=== PATIENT | female | born 1980 | race Caucasian/White ===

== ENCOUNTER 2020-11-23 15:51 | Emergency (ER) | payer SELFPAY | END 2020-11-23 18:56 | disposition home or self-care (01) | LOC: ERS 15:51 | DX: S80.212A Abrasion, left knee, initial encounter (principal); W18.30XA Fall on same level, unspecified, initial encounter ==

== ENCOUNTER 2021-03-18 17:03 | Emergency (ER) | payer SELFPAY ==
[~2021-03-18 17:03] MED LIST: Iopamidol-370 76% 500 ML 1 ML ONE
[2021-03-18 18:28] LABS: #Basophils 0.1 thou/uL (0.0-0.2); #Eosinphils 0.3 thou/uL (0.0-0.7); #Lymphocytes 2.2 thou/uL (1.20-3.40); #Monocytes 0.6 thou/uL (0.11-0.59); #Neutrophils 5.7 thou/uL (1.40-6.50); %Basophils 0.7 % (0.0-1.0); %Eosinophils 3.2 % (0.0-10.0); %Lymphocytes 25.1 % (21.0-51.0); %Monocytes 6.7 % (0.0-10.0); %Neutrophils 64.3 % (42.0-75.0); Hemoglobin 13.9 g/dL (12.0-16.0); Mean Corpuscular HGB CONC 33.3 g/dL (32.0-36.0); Mean Corpuscular Hemoglobin 27.7 pg (27.0-31.0); Mean Corpuscular Volume 83.1 fL (78.0-98.0); Mean Platelet Volume 7.1 fL (7.4-10.4); Platelet Count 292 thou/uL (130-400); RBC Distribution Width 12.2 % (11.5-14.5); Red Blood Cell (RBC) Count 5.01 mill/uL (4.20-5.40); White Blood Cell (WBC) Count 8.8 thou/uL (4.8-10.8)
[2021-03-18 18:43] LABS: ALT (SGPT) 13 U/L (8-55); AST (SGOT) 13 U/L (5-34); Albumin 4.4 g/dL (3.5-5.0); Alkaline Phosphatase 129 U/L (40-110); Anion Gap 17 mmol/L (10-20); BUN (Urea Nitrogen) 17 mg/dL (7.0-18.7); Bilirubin, Total 0.8 mg/dL (0.2-1.2); Calc. Creatinine Clearance 0 mL/min (70-130); Calcium 9.5 mg/dL (7.8-10.44); Carbon Dioxide 25 mmol/L (22-29); Chloride 94 mmol/L (98-107); Glucose 332 mg/dL (70-105); Lipase 22 U/L (8-78); Potassium 4.2 mmol/L (3.5-5.1); Protein, Total 8.4 g/dL (6.0-8.3); Sodium 132 mmol/L (136-145)
[2021-03-18 20:32] LABS: BHCG - Serum Negative (NEGATIVE); Pregs Control Background? CLEAR/WHITE (CLR/WHITE); Pregs Control Bar Appear? YES (CONTROL BAR)
[2021-03-18] MEDS ORDERED: Ondansetron PF 4 MG/2 ML Vial ONE (20:49)
[2021-03-18] MEDS ORDERED: Fentanyl 100 MCG/2 ML VIAL ONE (20:50)
[2021-03-18 22:59] LABS: Bilirubin Negative (Negative); Blood, Urine 1+ (Negative); Clarity Clear (Clear); Glucose, Urine (Dipstick) Greater than 1000 mg/dL (Negative); Ketone, Urine 40 mg/dL (Negative); Leukocyte Negative Leu/uL (Negative); Nitrite Negative (Negative); Protein, Urine (Dipstick) 10 mg/dL (Neg-Trace); Urobilinogen Normal mg/dL (Less than 2); WBC/HPF 0-3 HPF (0-3)
[2021-03-18 23:04] LABS: Bacteria/HPF 2+ HPF (None Seen)
[2021-03-19] MEDS ORDERED: Fentanyl 100 MCG/2 ML VIAL ONE (00:09)
== END 2021-03-19 00:33 | disposition home or self-care (01) ==
LOC: ERS 17:03
DX: R10.30 Lower abdominal pain, unspecified (principal)
CPT/HCPCS: 36415; 74177; 80053; 81003; 81015; 83690; 84703; 85025; 87077; 87086; 96372; 96374; 96375; 96376; J0500; J2405; J3010; Q9967

== ENCOUNTER 2021-03-20 11:19 | Inpatient (IN) | payer SELFPAY ==
[2021-03-20 13:21] LABS: #Lymphocytes 2.1 thou/uL (1.20-3.40); #Monocytes 0.6 thou/uL (0.11-0.59); #Neutrophils 10.5 thou/uL (1.40-6.50); %Basophils 0.2 % (0.0-1.0); %Eosinophils 0.2 % (0.0-10.0); %Lymphocytes 15.8 % (21.0-51.0); %Monocytes 4.1 % (0.0-10.0); %Neutrophils 79.7 % (42.0-75.0); Hemoglobin 13.3 g/dL (12.0-16.0); Mean Corpuscular HGB CONC 34.4 g/dL (32.0-36.0); Mean Corpuscular Hemoglobin 28.4 pg (27.0-31.0); Mean Corpuscular Volume 82.5 fL (78.0-98.0); Mean Platelet Volume 7.2 fL (7.4-10.4); Platelet Count 313 thou/uL (130-400); RBC Distribution Width 12.5 % (11.5-14.5); Red Blood Cell (RBC) Count 4.68 mill/uL (4.20-5.40); White Blood Cell (WBC) Count 13.2 thou/uL (4.8-10.8)
[2021-03-20] MEDS ORDERED: Pantoprazole 40 MG VIAL ONE (13:28)
[2021-03-20] MEDS ORDERED: Ondansetron PF 4 MG/2 ML Vial ONE (13:29)
[2021-03-20] MEDS ORDERED: Haloperidol Lactate 5 MG/ML VIAL ONE (13:29)
[2021-03-20 13:36] LABS: Magnesium 1.9 mg/dL (1.6-2.6)
[2021-03-20 13:46] LABS: ALT (SGPT) 12 U/L (8-55); AST (SGOT) 14 U/L (5-34); Albumin 4.7 g/dL (3.5-5.0); Alkaline Phosphatase 124 U/L (40-110); Anion Gap 30 mmol/L (10-20); BUN (Urea Nitrogen) 30 mg/dL (7.0-18.7); Calc. Creatinine Clearance 0 mL/min (70-130); Calcium 9.4 mg/dL (7.8-10.44); Carbon Dioxide 14 mmol/L (22-29); Chloride 89 mmol/L (98-107); Globulin 4.2 g/dL (2.4-3.5); Glucose 444 mg/dL (70-105); Lipase 8 U/L (8-78); Phosphorus 4.8 mg/dL (2.3-4.7); Potassium 3.9 mmol/L (3.5-5.1); Protein, Total 8.9 g/dL (6.0-8.3); Sodium 129 mmol/L (136-145)
[2021-03-20 14:26] LABS: BHCG - Serum Negative (NEGATIVE); Pregs Control Background? CLEAR/WHITE (CLR/WHITE); Pregs Control Bar Appear? YES (CONTROL BAR)
[2021-03-20] MEDS ORDERED: INSULIN REGULAR IN 0.9 % NACL 100 UNIT/100 ML BAG ONE (14:34)
[2021-03-20] MEDS ORDERED: Dextrose 5 %-0.45 % NaCl 1,000 ML IV PRN (16:12)
[2021-03-20] MEDS ORDERED: hydrALAZINE 20 MG/ML VIAL SLOW IVP PRN (16:12)
[2021-03-20] MEDS ORDERED: Ondansetron PF 4 MG/2 ML Vial IVP PRN (16:12)
[2021-03-20] MEDS ORDERED: Acetaminophen 325 MG TAB PO PRN (16:12)
[2021-03-20] MEDS ORDERED: Electrolyte Replacement Protocol 1 EACH IVPB ONE (16:12)
[2021-03-20] MEDS ORDERED: Ondansetron ODT 4 MG TAB PO PRN (16:12)
[2021-03-20] MEDS ORDERED: HYDROcodone/Acetaminophen 5/325 mg Tablet PO PRN (16:12)
[2021-03-20] MEDS ORDERED: NS 0.9% w/ 20 MEQ KCL 1,000 ML IV PRN (16:12)
[2021-03-20] MEDS ORDERED: Sodium Chloride 0.9% 1,000 ML IV PRN ×4 (16:12)
[2021-03-20] MEDS ORDERED: Labetalol HCl 100 MG/20 ML VIAL SLOW IVP PRN (16:12)
[2021-03-20] MEDS ORDERED: HUMULIN R 100 UNITS in Sodium Chloride 0.9% 100 ML IVPB SCH (16:15)
[2021-03-20] MEDS ORDERED: Electrolyte Replacement Protocol FS PRN (16:45)
[2021-03-20] MEDS ORDERED: NS 0.9% w/ 20 MEQ KCL 1,000 ML ONE ×2 (17:16→19:42)
[2021-03-20 17:20] LABS: Anion Gap 15 mmol/L (10-20); BUN (Urea Nitrogen) 22 mg/dL (7.0-18.7); Calc. Creatinine Clearance 0 mL/min (70-130); Calcium 7.8 mg/dL (7.8-10.44); Carbon Dioxide 15 mmol/L (22-29); Chloride 106 mmol/L (98-107); Glucose 185 mg/dL (70-105); Potassium 3.3 mmol/L (3.5-5.1); Sodium 133 mmol/L (136-145)
[2021-03-20] MEDS: NS 0.9% w/ 20 MEQ KCL 1,000 ML IV PRN ×2 (17:27→19:45)
[2021-03-20 20:30] LABS: Bacteria/HPF None Seen HPF (None Seen); Bilirubin Negative (Negative); Blood, Urine 1+ (Negative); Clarity Clear (Clear); Glucose, Urine (Dipstick) Greater than 1000 mg/dL (Negative); Ketone, Urine Greater than 150 mg/dL (Negative); Leukocyte Negative Leu/uL (Negative); Nitrite Negative (Negative); Protein, Urine (Dipstick) 10 mg/dL (Neg-Trace); Specific Gravity, Urine 1.022 (1.002-1.036); Urobilinogen Normal mg/dL (Less than 2); WBC/HPF 0-3 HPF (0-3)
[2021-03-20 21:23] LABS: Anion Gap 13 mmol/L (10-20); BUN (Urea Nitrogen) 17 mg/dL (7.0-18.7); Calc. Creatinine Clearance 0 mL/min (70-130); Calcium 7.6 mg/dL (7.8-10.44); Carbon Dioxide 15 mmol/L (22-29); Chloride 110 mmol/L (98-107); Glucose 97 mg/dL (70-105); Phosphorus Less than 1.0 mg/dL (2.3-4.7); Potassium 3.3 mmol/L (3.5-5.1); Sodium 135 mmol/L (136-145)
[2021-03-20] MEDS ORDERED: D5 1/2 NS w/20 mEq KCL 1,000 ML ONE (23:08)
[2021-03-20] MEDS: D5 1/2 NS w/20 mEq KCL 1,000 ML IV PRN (23:13)
[2021-03-20 23:50] LABS: SARS-CoV-2 PCR by NAA Not Detected (NotDetected)
[2021-03-21 01:37] LABS: Anion Gap 21 mmol/L (10-20); BUN (Urea Nitrogen) 13 mg/dL (7.0-18.7); Calc. Creatinine Clearance 0 mL/min (70-130); Calcium 7.6 mg/dL (7.8-10.44); Chloride 107 mmol/L (98-107); Glucose 243 mg/dL (70-105); Potassium 3.5 mmol/L (3.5-5.1); Sodium 132 mmol/L (136-145)
[2021-03-21 01:40] LABS: Carbon Dioxide 8 mmol/L (22-29)
[2021-03-21 01:57] LABS: Phosphorus 1.3 mg/dL (2.3-4.7)
[2021-03-21] MEDS ORDERED: Potassium Phosphate 22 MMOL in Sodium Chloride 0.9% 250 ML 250 ML IVPB SCH (02:30)
[2021-03-21] MEDS: D5 1/2 NS w/20 mEq KCL 1,000 ML IV PRN (03:35)
[2021-03-21 04:48] LABS: Anion Gap 21 mmol/L (10-20); BUN (Urea Nitrogen) 11 mg/dL (7.0-18.7); Calc. Creatinine Clearance 0 mL/min (70-130); Calcium 7.7 mg/dL (7.8-10.44); Chloride 105 mmol/L (98-107); Glucose 298 mg/dL (70-105); Potassium 3.5 mmol/L (3.5-5.1); Sodium 130 mmol/L (136-145)
[2021-03-21 04:56] LABS: Carbon Dioxide 8 mmol/L (22-29)
[2021-03-21] MEDS ORDERED: Magnesium 2 GM/50 ML 2 GM in Premix Bag 1 BAG IVPB SCH (07:00)
[2021-03-21] MEDS ORDERED: Potassium Chloride 20 MEQ TAB PO SCH (08:00)
[2021-03-21 08:26] VITALS: TEMP 97.6
[2021-03-21] MEDS ORDERED: Enoxaparin Sodium 40 MG/0.4 ML SYRINGE SC SCH (09:00)
== END 2021-03-21 11:58 | disposition left against medical advice (07) | DRG 638 ==
LOC: ERS 11:19 → ERHOLD 14:46 → IMCU/EMU 23:39
PROVIDERS: ADMIT Family Medicine; ATTEND Internal Medicine
DX: E11.10 Type 2 diabetes mellitus with ketoacidosis without coma (principal); N17.9 Acute kidney failure, unspecified; E87.1 Hypo-osmolality and hyponatremia; I25.10 Atherosclerotic heart disease of native coronary artery without angina pectoris; I10 Essential (primary) hypertension; Z20.822 Contact with and (suspected) exposure to COVID-19; Z95.1 Presence of aortocoronary bypass graft; Z88.8 Allergy status to other drugs, medicaments and biological substances; Z91.040 Latex allergy status; Z79.82 Long term (current) use of aspirin; Z79.899 Other long term (current) drug therapy; I25.2 Old myocardial infarction; Z90.49 Acquired absence of other specified parts of digestive tract; Z87.891 Personal history of nicotine dependence; Z91.14 Patient's other noncompliance with medication regimen
CPT/HCPCS: 36415; 36416; 80048; 80053; 81003; 81015; 82010; 83690; 83735; 84100; 84703; 85025; 93005; C9113; J1630; J1815; J2405; J3480; J7050; U0003; U0005

== ENCOUNTER 2022-04-16 13:13 | Outpatient (CLI) | payer MEDICAID | END 2022-04-16 13:14 | disposition home or self-care (01) | LOC: BICMAMMO 13:13 | PROVIDERS: ATTEND Family Medicine | DX: Z12.31 Encounter for screening mammogram for malignant neoplasm of breast (principal); Z80.3 Family history of malignant neoplasm of breast | CPT/HCPCS: 77067 ==

== ENCOUNTER 2022-05-12 10:18 | Outpatient (CLI) | payer MEDICAID | END 2022-05-12 10:19 | disposition home or self-care (01) | LOC: BICULT 10:18 | PROVIDERS: ATTEND Family Medicine | DX: N93.9 Abnormal uterine and vaginal bleeding, unspecified (principal); N83.202 Unspecified ovarian cyst, left side | CPT/HCPCS: 76856 ==

== ENCOUNTER 2022-10-24 15:11 | Emergency (ER) | payer MEDICAID | END 2022-10-24 16:29 | disposition home or self-care (01) | LOC: ERS 15:11 | DX: H00.022 Hordeolum internum right lower eyelid (principal); E11.9 Type 2 diabetes mellitus without complications; Z79.899 Other long term (current) drug therapy; Z79.4 Long term (current) use of insulin | CPT/HCPCS: 99283 ==

== ENCOUNTER 2023-04-07 14:48 | Emergency (ER) | payer MEDICAID, SELFPAY ==
[2023-04-07] MEDS ORDERED: HYDROcodone/Acetaminophen 5/325 mg Tablet ONE (16:45)
[2023-04-07] MEDS ORDERED: Bacitracin 1 PK ONE (17:44)
== END 2023-04-07 17:56 | disposition home or self-care (01) ==
LOC: ERS 14:48
DX: L02.811 Cutaneous abscess of head [any part, except face] (principal); E11.9 Type 2 diabetes mellitus without complications; Z87.891 Personal history of nicotine dependence; Z79.84 Long term (current) use of oral hypoglycemic drugs
CPT/HCPCS: 99283

== ENCOUNTER 2023-04-20 15:41 | Emergency (ER) | payer SELFPAY ==
[2023-04-20] MEDS ORDERED: Lidocaine 1% PF 5 ML VIAL ONE (19:56)
[2023-04-20] MEDS ORDERED: HYDROcodone/Acetaminophen 5/325 mg Tablet ONE (20:09)
== END 2023-04-20 21:34 | disposition home or self-care (01) ==
LOC: ERS 15:41
DX: L02.811 Cutaneous abscess of head [any part, except face] (principal); E11.9 Type 2 diabetes mellitus without complications; R69 Illness, unspecified; Z55.6 Problems related to health literacy; Z79.899 Other long term (current) drug therapy; Z87.891 Personal history of nicotine dependence
CPT/HCPCS: 10060

== ENCOUNTER 2023-06-30 16:35 | Emergency (ER) | payer SELFPAY ==
[2023-06-30] MEDS ORDERED: Furosemide 40 MG (4 mL) VIAL ONE (17:45)
[2023-06-30 18:05] LABS: #Basophils 0.06 10x3/uL (0.0-0.2); %Basophils 0.9 % (0.0-1.0); %Eosinophils 2.9 % (0.0-10.0); %Lymphocytes 28.8 % (21.0-51.0); %Monocytes 5.8 % (0.0-10.0); %Neutrophils 61.3 % (42.0-75.0); Hematocrit 31.7 % (36.0-47.0); Hemoglobin 10.3 g/dL (12.0-16.0); Mean Corpuscular HGB CONC 32.5 g/dL (32.0-36.0); Mean Corpuscular Hemoglobin 25.2 pg (27.0-31.0); Mean Corpuscular Volume 77.5 fL (78.0-98.0); Mean Platelet Volume 9.7 fL (7.4-10.4); Platelet Count 244 10x3/uL (130-400); Red Blood Cell (RBC) Count 4.09 mill/uL (4.20-5.40)
[2023-06-30 18:21] LABS: Globulin 4.3 g/dL (2.4-3.5)
[2023-06-30 18:23] LABS: Anion Gap 12 mmol/L (10-20)
[2023-06-30 18:25] LABS: ALT (SGPT) 13 U/L (8-55); AST (SGOT) 18 U/L (5-34); Albumin 3.7 g/dL (3.5-5.0); Alkaline Phosphatase 126 U/L (40-110); BUN (Urea Nitrogen) 21 mg/dL (7.0-18.7); Bilirubin, Total 0.3 mg/dL (0.2-1.2); Calc. Creatinine Clearance 0 mL/min (70-130); Calcium 9.3 mg/dL (7.8-10.44); Carbon Dioxide 24 mmol/L (22-29); Chloride 99 mmol/L (98-107); Estimated GFR 64; Glucose 364 mg/dL (70-105); Lipase 11 U/L (8-78); Sodium 131 mmol/L (136-145)
[2023-06-30 18:33] LABS: Troponin I Less than 0.010 ng/mL (< 0.028)
== END 2023-06-30 19:02 | disposition home or self-care (01) ==
LOC: ERS 16:35
DX: R60.0 Localized edema (principal); E11.9 Type 2 diabetes mellitus without complications; Z95.0 Presence of cardiac pacemaker; Z87.891 Personal history of nicotine dependence
CPT/HCPCS: 71045; 80053; 83690; 83880; 84484; 85025; 93005; 96374; J1940

== ENCOUNTER 2023-08-07 14:46 | Emergency (ER) | payer SELFPAY | END 2023-08-07 15:17 | disposition home or self-care (01) | LOC: ERS 14:46 | DX: K04.7 Periapical abscess without sinus (principal); E11.9 Type 2 diabetes mellitus without complications; Z79.84 Long term (current) use of oral hypoglycemic drugs; Z87.891 Personal history of nicotine dependence; Z79.4 Long term (current) use of insulin | CPT/HCPCS: 99282 ==

== ENCOUNTER 2023-08-12 21:59 | Inpatient (IN) | payer SELFPAY ==
[2023-08-12 23:21] LABS: Analyzer IN Cardio ER; Base Excess -13.4 mEq/L (-2.0 to +3.0); Calcium, Ionized (venous) 1.11 mmol/L (1.16-1.32); Chloride (VBG) 93 mmol/L (98-106); Hematocrit-VBG 33 % (36.0-47.0); Hemoglobin (Hb) 11.3 g/dL (11.7-15.5); Potassium (VBG) 3.24 mmol/L (3.70-5.30); Sodium 135 mmol/L (133-146); pH (venous) 7.268 (7.32-7.43)
[2023-08-12 23:25] LABS: #Basophils 0.03 10x3/uL (0.0-0.2); #Eosinphils Less than 0.03 10x3/uL (0.0-0.7); %Basophils 0.2 % (0.0-1.0); %Eosinophils 0.1 % (0.0-10.0); %Lymphocytes 19.2 % (21.0-51.0); %Monocytes 4.3 % (0.0-10.0); %Neutrophils 75.7 % (42.0-75.0); Hematocrit 33.2 % (36.0-47.0); Hemoglobin 10.5 g/dL (12.0-16.0); Mean Corpuscular HGB CONC 31.6 g/dL (32.0-36.0); Mean Corpuscular Hemoglobin 25.3 pg (27.0-31.0); Mean Platelet Volume 8.9 fL (7.4-10.4); Platelet Count 360 10x3/uL (130-400); RBC Distribution Width 17.2 % (11.5-14.5); Red Blood Cell (RBC) Count 4.15 mill/uL (4.20-5.40)
[2023-08-12 23:34] LABS: BHCG - Serum Negative (NEGATIVE); Pregs Control Background? CLEAR/WHITE (CLR/WHITE); Pregs Control Bar Appear? YES (CONTROL BAR)
[2023-08-12 23:45] LABS: ALT (SGPT) 11 U/L (8-55); AST (SGOT) 19 U/L (5-34); Albumin 3.5 g/dL (3.5-5.0); Alkaline Phosphatase 131 U/L (40-110); Anion Gap 29 mmol/L (10-20); BUN (Urea Nitrogen) 26 mg/dL (7.0-18.7); Bilirubin, Total 0.4 mg/dL (0.2-1.2); Calc. Creatinine Clearance 0 mL/min (70-130); Calcium 9.1 mg/dL (7.8-10.44); Carbon Dioxide 12 mmol/L (22-29); Chloride 94 mmol/L (98-107); Estimated GFR 40; Globulin 4.6 g/dL (2.4-3.5); Glucose 256 mg/dL (70-105); Lipase 26 U/L (8-78); Magnesium 2.4 mg/dL (1.6-2.6); Potassium 3.2 mmol/L (3.5-5.1); Protein, Total 8.1 g/dL (6.0-8.3); Sodium 132 mmol/L (136-145)
[2023-08-12 23:50] LABS: Phosphorus 3.4 mg/dL (2.3-4.7)
[2023-08-13] MEDS ORDERED: fentaNYL 50 mcg/mL 1 mL Vial ONE (00:13)
[2023-08-13] MEDS ORDERED: Ondansetron PF 4 MG/2 ML Vial ONE (00:13)
[2023-08-13] MEDS ORDERED: Metoclopramide HCl 10 MG (2 mL) VIAL ONE (01:30)
[2023-08-13] MEDS ORDERED: Pantoprazole 40 MG VIAL ONE ×4 (01:34→07:22)
[2023-08-13 01:36] LABS: Actual Bicarbonate (HCO3v) 12.1 mEq/L (22-28)
[2023-08-13] MEDS ORDERED: NS 0.9% w/ 20 MEQ KCL 1,000 ML IV PRN ×2 (01:51)
[2023-08-13] MEDS ORDERED: Ondansetron ODT 4 MG TAB PO PRN (01:51)
[2023-08-13] MEDS ORDERED: Ondansetron PF 4 MG/2 ML Vial IVP PRN (01:51)
[2023-08-13] MEDS ORDERED: Electrolyte Replacement Protocol 1 EACH IVPB SCH (01:51)
[2023-08-13] MEDS ORDERED: Dextrose 50% Abboject 50 ML SYRINGE SLOW IVP PRN ×2 (01:51→08:45)
[2023-08-13] MEDS ORDERED: Acetaminophen 325 MG TAB PO PRN (01:51)
[2023-08-13] MEDS ORDERED: Sodium Chloride 0.9% 1,000 ML IV PRN ×4 (01:51)
[2023-08-13] MEDS ORDERED: Acetaminophen 650 MG Suppository PR PRN (01:51)
[2023-08-13] MEDS ORDERED: Dextrose 5 %-0.45 % NaCl 1,000 ML IV PRN (01:51)
[2023-08-13] MEDS ORDERED: Insulin Reg, Human 100 UNITS in Sodium Chloride 0.9% 100 ML IVPB SCH (02:00)
[2023-08-13 03:11] LABS: #Basophils 0.03 10x3/uL (0.0-0.2); #Eosinphils Less than 0.03 10x3/uL (0.0-0.7); %Basophils 0.3 % (0.0-1.0); %Eosinophils 0.1 % (0.0-10.0); %Lymphocytes 15.2 % (21.0-51.0); %Monocytes 4.9 % (0.0-10.0); %Neutrophils 78.1 % (42.0-75.0); Hematocrit 31.1 % (36.0-47.0); Hemoglobin 9.6 g/dL (12.0-16.0); Mean Corpuscular HGB CONC 30.9 g/dL (32.0-36.0); Mean Corpuscular Hemoglobin 25.2 pg (27.0-31.0); Mean Corpuscular Volume 81.6 fL (78.0-98.0); Platelet Count 314 10x3/uL (130-400); RBC Distribution Width 17.1 % (11.5-14.5); Red Blood Cell (RBC) Count 3.81 mill/uL (4.20-5.40)
[2023-08-13] MEDS: Sodium Chloride 0.9% 1,000 ML IV SCH (03:19)
[2023-08-13 03:27] VITALS: TEMP 97.8
[2023-08-13 03:31] LABS: Anion Gap 27 mmol/L (10-20); BUN (Urea Nitrogen) 24 mg/dL (7.0-18.7); Calc. Creatinine Clearance 0 mL/min (70-130); Calcium 7.9 mg/dL (7.8-10.44); Carbon Dioxide 9 mmol/L (22-29); Chloride 102 mmol/L (98-107); Estimated GFR 52; Glucose 228 mg/dL (70-105); Potassium 3.5 mmol/L (3.5-5.1); Sodium 134 mmol/L (136-145)
[2023-08-13] MEDS ORDERED: Potassium Chloride 20 MEQ (100 mL) BAG ONE ×2 (07:22→09:14)
[2023-08-13] MEDS: Potassium Chloride 20 MEQ in Premix 1 BAG IVPB SCH (07:33)
[2023-08-13] MEDS: Pantoprazole 40 MG VIAL IVP SCH (07:34)
[2023-08-13 08:01] LABS: Bilirubin Negative (Negative); Blood, Urine 1+ (Negative); CAUTI Indications for Culture Pelvic or flank pain; Clarity Clear (Clear); Glucose, Urine (Dipstick) Greater than 1000 mg/dL (Negative); Ketone, Urine Greater than 150 mg/dL (Negative); Leukocyte Negative Leu/uL (Negative); Nitrite Negative (Negative); Protein, Urine (Dipstick) 20 mg/dL (Neg-Trace); RBC/HPF 0-3 HPF (0-3); Specific Gravity, Urine 1.018 (1.002-1.036); Urobilinogen Normal mg/dL (Less than 2); WBC/HPF 0-3 HPF (0-3)
[2023-08-13 08:07] VITALS: BMI 39.6
[2023-08-13 08:11] LABS: Bacteria/HPF None Seen HPF (None Seen)
[2023-08-13 08:12] LABS: Urine Culture Reflex No No
[2023-08-13] MEDS ORDERED: Morphine 2 MG/ML VIAL SLOW IVP PRN (08:33)
[2023-08-13] MEDS ORDERED: Glucagon 1 MG/ML KIT IM PRN (08:45)
[2023-08-13] MEDS ORDERED: Dextrose 5% in Water 1,000 ML IV PRN (08:45)
[2023-08-13 09:05] LABS: Base Excess -24.2 mEq/L (-2.0 to +3.0); Calcium, Ionized (venous) 1.19 mmol/L (1.16-1.32); Chloride (VBG) 104 mmol/L (98-106); Hematocrit-VBG 34 % (36.0-47.0); Hemoglobin (Hb) 11.5 g/dL (11.7-15.5); Potassium (VBG) 4.06 mmol/L (3.70-5.30); Sodium 139 mmol/L (133-146)
[2023-08-13 09:07] LABS: Actual Bicarbonate (HCO3v) 4.9 mEq/L (22-28)
[2023-08-13] MEDS ORDERED: HYDROcodone/Acetaminophen 5/325 mg Tablet ONE (09:13)
[2023-08-13 09:14] LABS: #Basophils 0.05 10x3/uL (0.0-0.2); #Eosinphils Less than 0.03 10x3/uL (0.0-0.7); %Basophils 0.3 % (0.0-1.0); %Lymphocytes 12.5 % (21.0-51.0); %Monocytes 4.6 % (0.0-10.0); %Neutrophils 79.7 % (42.0-75.0); Hematocrit 34.9 % (36.0-47.0); Hemoglobin 10.3 g/dL (12.0-16.0); Mean Corpuscular HGB CONC 29.5 g/dL (32.0-36.0); Mean Corpuscular Hemoglobin 25.6 pg (27.0-31.0); Mean Corpuscular Volume 86.6 fL (78.0-98.0); Mean Platelet Volume 8.8 fL (7.4-10.4); Platelet Count 399 10x3/uL (130-400); RBC Distribution Width 17.2 % (11.5-14.5); Red Blood Cell (RBC) Count 4.03 mill/uL (4.20-5.40)
[2023-08-13] MEDS: HYDROcodone/Acetaminophen 5/325 mg Tablet PO PRN (09:20)
[2023-08-13] MEDS: Insulin Glargine 30 UNITS/0.3 ML VIAL SC SCH (09:33)
[2023-08-13 10:00] LABS: BUN (Urea Nitrogen) 22 mg/dL (7.0-18.7); Calc. Creatinine Clearance 72 mL/min (70-130); Calcium 8.4 mg/dL (7.8-10.44); Carbon Dioxide Less than 8 mmol/L (22-29); Chloride 106 mmol/L (98-107); Estimated GFR 42; Glucose 228 mg/dL (70-105); Sodium 139 mmol/L (136-145)
[2023-08-13 10:13] VITALS: BP 104/60
[2023-08-13] MEDS ORDERED: INSULIN REGULAR IN 0.9 % NACL 100 UNITS/100 ML BAG ONE (10:22)
[2023-08-13] MEDS ORDERED: D5 1/2 NS w/20 mEq KCL 1,000 ML ONE (10:29)
[2023-08-13] MEDS: D5 1/2 NS w/20 mEq KCL 1,000 ML IV PRN (10:35)
== END 2023-08-13 12:25 | disposition left against medical advice (07) | DRG 638 ==
LOC: ERS 21:59 → ERHOLD 08-13 01:22
PROVIDERS: ADMIT Student in an Organized Health Care Education/Training Program; ATTEND Internal Medicine
DX: E11.10 Type 2 diabetes mellitus with ketoacidosis without coma (principal); E87.20 Acidosis, unspecified; N17.9 Acute kidney failure, unspecified; D63.1 Anemia in chronic kidney disease; E87.6 Hypokalemia; I25.10 Atherosclerotic heart disease of native coronary artery without angina pectoris; Z53.29 Procedure and treatment not carried out because of patient's decision for other reasons; Z90.49 Acquired absence of other specified parts of digestive tract; Z95.1 Presence of aortocoronary bypass graft; Z98.891 History of uterine scar from previous surgery; Z87.891 Personal history of nicotine dependence
CPT/HCPCS: 36415; 36416; 71045; 80048; 80053; 81001; 82010; 82805; 83690; 83735; 84100; 84484; 84703; 85025; C9113; J1815; J2405; J2765; J3010; J3480; J7050

== ENCOUNTER 2023-08-16 17:13 | Inpatient (IN) | payer SELFPAY ==
[2023-08-16 19:07] LABS: Analyzer IN Cardio ER; Base Excess -20.8 mEq/L (-2.0 to +3.0); Calcium, Ionized (venous) 1.26 mmol/L (1.16-1.32); Chloride (VBG) 110 mmol/L (98-106); Hematocrit-VBG 38 % (36.0-47.0); Hemoglobin (Hb) 12.8 g/dL (11.7-15.5); Potassium (VBG) 2.88 mmol/L (3.70-5.30); Sodium 148 mmol/L (133-146)
[2023-08-16 19:11] LABS: #Basophils Less than 0.03 10x3/uL (0.0-0.2); #Eosinphils Less than 0.03 10x3/uL (0.0-0.7); %Basophils 0.1 % (0.0-1.0); %Lymphocytes 12.1 % (21.0-51.0); %Monocytes 5.2 % (0.0-10.0); %Neutrophils 81.8 % (42.0-75.0); Mean Corpuscular HGB CONC 33.3 g/dL (32.0-36.0); Mean Corpuscular Hemoglobin 25.3 pg (27.0-31.0); Mean Corpuscular Volume 75.9 fL (78.0-98.0); Mean Platelet Volume 9.1 fL (7.4-10.4); Platelet Count 413 10x3/uL (130-400); RBC Distribution Width 17.3 % (11.5-14.5); Red Blood Cell (RBC) Count 4.74 mill/uL (4.20-5.40)
[2023-08-16 19:32] LABS: BHCG - Serum Negative (NEGATIVE); Pregs Control Background? CLEAR/WHITE (CLR/WHITE); Pregs Control Bar Appear? YES (CONTROL BAR)
[2023-08-16 19:38] LABS: Phosphorus 2.2 mg/dL (2.3-4.7)
[2023-08-16 19:39] LABS: Acetaminophen Less than 10 mcg/mL (10.0-30.0); Alcohol Less than 10.0 mg/dL (Less than 10); Salicylate Less than 8.0 mg/dL (15.0-30.0)
[2023-08-16 19:54] LABS: ALT (SGPT) 10 U/L (8-55); AST (SGOT) 10 U/L (5-34); Albumin 3.7 g/dL (3.5-5.0); Alkaline Phosphatase 120 U/L (40-110); Anion Gap 29 mmol/L (10-20); BUN (Urea Nitrogen) 46 mg/dL (7.0-18.7); Bilirubin, Total 0.3 mg/dL (0.2-1.2); Calc. Creatinine Clearance 0 mL/min (70-130); Calcium 9.1 mg/dL (7.8-10.44); Carbon Dioxide Less than 8 mmol/L (22-29); Chloride 113 mmol/L (98-107); Estimated GFR 36; Globulin 4.3 g/dL (2.4-3.5); Glucose 402 mg/dL (70-105); Lipase 82 U/L (8-78); Magnesium 2.4 mg/dL (1.6-2.6); Potassium 2.7 mmol/L (3.5-5.1); Sodium 145 mmol/L (136-145)
[2023-08-16] MEDS ORDERED: Potassium Bicarbonate/Cit Ac 20 MEQ TAB ONE (20:24)
[2023-08-16] MEDS ORDERED: Sodium Chloride 0.9% 1,000 ML IV PRN ×4 (21:53)
[2023-08-16] MEDS ORDERED: Electrolyte Replacement Protocol 1 EACH IVPB SCH (21:53)
[2023-08-16] MEDS ORDERED: Dextrose 5 %-0.45 % NaCl 1,000 ML IV PRN (21:53)
[2023-08-16] MEDS ORDERED: NS 0.9% w/ 20 MEQ KCL 1,000 ML IV PRN ×2 (21:53)
[2023-08-16] MEDS ORDERED: Ondansetron PF 4 MG/2 ML Vial IVP PRN (21:55)
[2023-08-16] MEDS ORDERED: Acetaminophen 650 MG Suppository PR PRN (21:55)
[2023-08-16] MEDS ORDERED: Ondansetron ODT 4 MG TAB PO PRN (21:55)
[2023-08-16] MEDS ORDERED: INSULIN REGULAR IN 0.9 % NACL 100 UNITS/100 ML BAG ONE (21:56)
[2023-08-16] MEDS ORDERED: Insulin Reg, Human 100 UNITS in Sodium Chloride 0.9% 100 ML IVPB SCH (22:00)
[2023-08-16 23:07] LABS: Hemoglobin A1c 13.2 % (4.0-6.0)
[2023-08-17 01:37] LABS: Anion Gap 20 mmol/L (10-20); BUN (Urea Nitrogen) 43 mg/dL (7.0-18.7); Calc. Creatinine Clearance 0 mL/min (70-130); Calcium 8.3 mg/dL (7.8-10.44); Carbon Dioxide 10 mmol/L (22-29); Chloride 124 mmol/L (98-107); Estimated GFR 43; Glucose 220 mg/dL (70-105); Potassium 3.3 mmol/L (3.5-5.1); Sodium 151 mmol/L (136-145)
[2023-08-17 01:51] VITALS: BMI 26.9
[2023-08-17] MEDS ORDERED: Potassium Chloride 20 MEQ in Lactated Ringer's 1,000 ML IV SCH (02:00)
[2023-08-17] MEDS: D5 LR w/20 mEq KCL 1,000 ML IV SCH (02:50)
[2023-08-17] MEDS: Dextrose 50% Abboject 50 ML SYRINGE SLOW IVP PRN (03:02)
[2023-08-17] MEDS: Potassium Chloride 20 MEQ in Premix 1 BAG IVPB SCH (05:13)
[2023-08-17 08:04] LABS: Anion Gap 18 mmol/L (10-20); BUN (Urea Nitrogen) 39 mg/dL (7.0-18.7); Calc. Creatinine Clearance 61 mL/min (70-130); Calcium 8.2 mg/dL (7.8-10.44); Carbon Dioxide 12 mmol/L (22-29); Chloride 128 mmol/L (98-107); Estimated GFR 52; Glucose 268 mg/dL (70-105); Potassium 3.2 mmol/L (3.5-5.1)
[2023-08-17] MEDS: Famotidine 20 MG TAB PO SCH (08:09)
[2023-08-17] MEDS: Potassium Bicarbonate/Cit Ac 20 MEQ TAB PO SCH (08:09)
[2023-08-17] MEDS: Carvedilol 6.25 MG TAB PO SCH (08:09)
[2023-08-17] MEDS: Amitriptyline HCl 100 MG TAB PO SCH (08:09)
[2023-08-17] MEDS: Famotidine/PF 20 mg/2ml Vial SLOW IVP SCH (08:10)
[2023-08-17] MEDS: D5 1/2 NS w/20 mEq KCL 1,000 ML IV PRN (08:11)
[2023-08-17 08:13] LABS: Sodium 155 mmol/L (136-145)
[2023-08-17] MEDS ORDERED: GABAPENTIN 600 MG PO SCH (09:00)
[2023-08-17] MEDS: NS 0.9% w/ 40 MEQ KCL 1,000 ML IV SCH (09:27)
[2023-08-17] MEDS: Dextrose 5% in Water 1,000 ML IV SCH (09:27)
[2023-08-17 11:34] LABS: Anion Gap 19 mmol/L (10-20); BUN (Urea Nitrogen) 40 mg/dL (7.0-18.7); Calc. Creatinine Clearance 59 mL/min (70-130); Calcium 8.2 mg/dL (7.8-10.44); Carbon Dioxide 14 mmol/L (22-29); Chloride 126 mmol/L (98-107); Estimated GFR 51; Glucose 257 mg/dL (70-105); Potassium 3.2 mmol/L (3.5-5.1); Sodium 156 mmol/L (136-145)
[2023-08-17 13:58] LABS: Actual Bicarbonate (HCO3v) 7.2 mEq/L (22-28); pH (venous) 7.105 (7.32-7.43)
[2023-08-17 14:14] VITALS: BMI 26.9
[2023-08-17] MEDS ORDERED: Glucagon 1 MG/ML KIT IM PRN (16:54)
[2023-08-17] MEDS ORDERED: Dextrose 50% Abboject 50 ML SYRINGE SLOW IVP PRN (16:54)
[2023-08-17] MEDS ORDERED: Dextrose 5% in Water 1,000 ML IV PRN (16:54)
[2023-08-17] MEDS: Clopidogrel Bisulfate 75 MG TAB PO SCH (17:24)
[2023-08-17] MEDS: Insulin Glargine 30 UNITS/0.3 ML VIAL SC SCH ×2 (18:07→22:06)
[2023-08-17] MEDS: Atorvastatin Calcium 40 MG TAB PO SCH (21:59)
[2023-08-17] MEDS: HumaLOG 300 UNITS/3 ML VIAL SC PRN (22:00)
[2023-08-17] MEDS: Metoprolol Tartrate 25 MG TAB PO SCH (22:06)
[2023-08-18] MEDS: Calcium Carbonate 500 MG ChewTAB PO PRN (02:26)
[2023-08-18] MEDS ORDERED: Potassium Chloride 20 MEQ in Premix 1 BAG IVPB SCH (05:00)
[2023-08-18 06:13] LABS: #Basophils Less than 0.03 10x3/uL (0.0-0.2); %Basophils 0.1 % (0.0-1.0); %Eosinophils 0.3 % (0.0-10.0); %Lymphocytes 22.6 % (21.0-51.0); %Monocytes 8.3 % (0.0-10.0); %Neutrophils 68.3 % (42.0-75.0); Hematocrit 30.7 % (36.0-47.0); Hemoglobin 10.5 g/dL (12.0-16.0); Mean Corpuscular HGB CONC 34.2 g/dL (32.0-36.0); Mean Corpuscular Volume 73.1 fL (78.0-98.0); Mean Platelet Volume 9.1 fL (7.4-10.4); Platelet Count 259 10x3/uL (130-400); RBC Distribution Width 17.8 % (11.5-14.5)
[2023-08-18] MEDS: HumaLOG 300 UNITS/3 ML VIAL SC PRN (06:45)
[2023-08-18] MEDS: Clopidogrel Bisulfate 75 MG TAB PO SCH (07:38)
[2023-08-18] MEDS: Aspirin 81 mg Enteric Coated Tablet PO SCH (07:38)
[2023-08-18] MEDS: Sertraline 25 MG TAB PO SCH (07:39)
[2023-08-18 07:56] LABS: Anion Gap 25 mmol/L (10-20); BUN (Urea Nitrogen) 14 mg/dL (7.0-18.7); Calc. Creatinine Clearance 75 mL/min (70-130); Calcium 9.2 mg/dL (7.8-10.44); Carbon Dioxide 17 mmol/L (22-29); Chloride 111 mmol/L (98-107); Estimated GFR 68; Glucose 230 mg/dL (70-105); Potassium 2.6 mmol/L (3.5-5.1); Sodium 150 mmol/L (136-145)
[2023-08-18 10:02] LABS: Magnesium 1.9 mg/dL (1.6-2.6)
[2023-08-18] MEDS ORDERED: Dextrose 5 %-0.45 % NaCl 1,000 ML IV PRN (10:27)
[2023-08-18] MEDS ORDERED: NS 0.9% w/ 20 MEQ KCL 1,000 ML IV PRN ×2 (10:27)
[2023-08-18] MEDS ORDERED: Sodium Chloride 0.9% 1,000 ML IV PRN ×4 (10:27)
[2023-08-18] MEDS ORDERED: Dextrose 50% Abboject 50 ML SYRINGE SLOW IVP PRN (10:27)
[2023-08-18] MEDS: Magnesium 2 GM/50 ML(in water) 2 GM in Premix 1 BAG IVPB SCH (10:54)
[2023-08-18] MEDS: Acetaminophen 325 MG TAB PO PRN (10:54)
[2023-08-18] MEDS: Potassium Chloride 20 MEQ TAB PO SCH (10:54)
[2023-08-18 11:48] LABS: Anion Gap 18 mmol/L (10-20); BUN (Urea Nitrogen) 15 mg/dL (7.0-18.7); Calc. Creatinine Clearance 79 mL/min (70-130); Calcium 9.1 mg/dL (7.8-10.44); Carbon Dioxide 21 mmol/L (22-29); Chloride 111 mmol/L (98-107); Estimated GFR 73; Glucose 260 mg/dL (70-105); Potassium 2.5 mmol/L (3.5-5.1); Sodium 147 mmol/L (136-145)
[2023-08-18] MEDS: Electrolyte Replacement Protocol 1 EACH IVPB ONE (12:01)
[2023-08-18] MEDS: Insulin Reg, Human 100 UNITS in Sodium Chloride 0.9% 100 ML IVPB SCH (12:16)
[2023-08-18] MEDS: D5 1/2 NS w/20 mEq KCL 1,000 ML IV PRN (12:17)
[2023-08-18] MEDS: Potassium Chloride 40 MEQ in Sodium Chloride 0.9% 250 ML 250 ML IVPB SCH (13:04)
[2023-08-18 16:28] LABS: Anion Gap 14 mmol/L (10-20); BUN (Urea Nitrogen) 12 mg/dL (7.0-18.7); Calc. Creatinine Clearance 86 mL/min (70-130); Calcium 8.7 mg/dL (7.8-10.44); Carbon Dioxide 22 mmol/L (22-29); Chloride 111 mmol/L (98-107); Estimated GFR 80; Glucose 247 mg/dL (70-105); Potassium 2.6 mmol/L (3.5-5.1); Sodium 144 mmol/L (136-145)
[2023-08-18] MEDS ORDERED: Electrolyte Replacement Protocol 1 EACH FS ONE (17:13)
[2023-08-18] MEDS: Senokot S 8.6-50 MG TAB PO PRN (20:37)
[2023-08-18] MEDS: Famotidine 20 MG TAB PO SCH (20:37)
[2023-08-18] MEDS: DC CCU Insulin Drip FS ONE (21:23)
[2023-08-18] MEDS: Insulin Glargine 30 UNITS/0.3 ML VIAL SC SCH (22:12)
[2023-08-18] MEDS: Potassium Chloride 20 MEQ in Lactated Ringer's 1,000 ML IV SCH (22:13)
[2023-08-18] MEDS: Gabapentin 400 MG CAP PO SCH (22:13)
[2023-08-19 00:04] LABS: Anion Gap 14 mmol/L (10-20); BUN (Urea Nitrogen) 8 mg/dL (7.0-18.7); Calc. Creatinine Clearance 111 mL/min (70-130); Calcium 8.3 mg/dL (7.8-10.44); Carbon Dioxide 22 mmol/L (22-29); Chloride 110 mmol/L (98-107); Estimated GFR 110; Glucose 136 mg/dL (70-105); Potassium 3.5 mmol/L (3.5-5.1); Sodium 142 mmol/L (136-145)
[2023-08-19] MEDS: Potassium Bicarbonate/Cit Ac 20 MEQ TAB PO SCH (02:04)
[2023-08-19 06:58] LABS: Anion Gap 16 mmol/L (10-20); BUN (Urea Nitrogen) 7 mg/dL (7.0-18.7); Calc. Creatinine Clearance 110 mL/min (70-130); Calcium 8.6 mg/dL (7.8-10.44); Carbon Dioxide 22 mmol/L (22-29); Chloride 109 mmol/L (98-107); Estimated GFR 108; Glucose 164 mg/dL (70-105); Sodium 143 mmol/L (136-145)
[2023-08-19] MEDS: Gabapentin 300 MG CAP PO SCH (08:44)
[2023-08-19] MEDS: Insulin Glargine 30 UNITS/0.3 ML VIAL SC SCH (10:34)
[2023-08-19] MEDS: Pioglitazone HCl 45 MG TAB PO SCH (12:27)
[2023-08-19] MEDS: Sodium Chloride 0.9% 500 ML IV SCH (21:10)
[2023-08-19] MEDS: Amitriptyline HCl 100 MG TAB PO SCH (21:44)
[2023-08-19] MEDS: Albumin 25% 25 GM (100 mL) BOT IVPB SCH (21:47)
[2023-08-19 23:21] LABS: Magnesium 1.7 mg/dL (1.6-2.6); Potassium 3.4 mmol/L (3.5-5.1)
[2023-08-19] MEDS: QUEtiapine 100 MG TAB PO SCH (23:21)
[2023-08-19] MEDS: Gabapentin 400 MG CAP PO SCH (23:28)
[2023-08-20 02:32] LABS: Phosphorus Less than 0.7 mg/dL (2.3-4.7)
[2023-08-20] MEDS: Magnesium 2 GM/50 ML(in water) 2 GM in Premix 1 BAG IVPB SCH (02:36)
[2023-08-20] MEDS: Magnesium Oxide 400 MG TAB PO SCH (02:50)
[2023-08-20] MEDS: Potassium Chloride 20 MEQ TAB PO SCH (02:50)
[2023-08-20] MEDS: PHOS-NAK 1 PKT PACK PO SCH (04:04)
[2023-08-20 04:36] LABS: Anion Gap 15 mmol/L (10-20); BUN (Urea Nitrogen) 5 mg/dL (7.0-18.7); Calc. Creatinine Clearance 131 mL/min (70-130); Calcium 8.9 mg/dL (7.8-10.44); Carbon Dioxide 26 mmol/L (22-29); Chloride 109 mmol/L (98-107); Estimated GFR 114; Glucose 79 mg/dL (70-105); Potassium 3.4 mmol/L (3.5-5.1); Sodium 147 mmol/L (136-145)
[2023-08-20] MEDS ORDERED: Electrolyte Replacement Protocol FS PRN (08:45)
[2023-08-20] MEDS: Losartan 25 MG TAB PO SCH (09:18)
[2023-08-20] MEDS ORDERED: MAGIC MOUTHWASH 10 ML UDCUP SSW PRN (11:19)
[2023-08-20] MEDS: MAGIC MOUTHWASH 10 ML UDCUP SSW PRN (13:26)
[2023-08-20] MEDS: Potassium Chloride 20 MEQ TAB ONE (20:01)
[2023-08-20] MEDS: Magnesium Oxide 400 MG TAB ONE (20:01)
[2023-08-20] MEDS: PHOS-NAK 1 PKT PACK ONE (20:02)
[2023-08-20] MEDS: Potassium Phosphate 30 MMOL in Sodium Chloride 0.9% 250 ML 250 ML IVPB SCH (20:03)
[2023-08-21 04:40] LABS: Anion Gap 10 mmol/L (10-20); BUN (Urea Nitrogen) 8 mg/dL (7.0-18.7); Calc. Creatinine Clearance 119 mL/min (70-130); Calcium 8.8 mg/dL (7.8-10.44); Carbon Dioxide 29 mmol/L (22-29); Chloride 108 mmol/L (98-107); Estimated GFR 112; Glucose 136 mg/dL (70-105); Sodium 143 mmol/L (136-145)
[2023-08-21] MEDS: PHOS-NAK 1 PKT PACK PO SCH (06:01)
[2023-08-21] MEDS: Magnesium Oxide 400 MG TAB PO SCH (06:01)
[2023-08-21] MEDS ORDERED: Magnesium 2 GM/50 ML(in water) 2 GM in Premix 1 BAG IVPB SCH (08:00)
[2023-08-21 11:17] VITALS: BP 96/63; TEMP 98.1
== END 2023-08-21 13:01 | disposition home or self-care (01) | DRG 637 ==
LOC: ERS 17:13 → ERHOLD 21:05 → IMCU/EMU 23:01 → MSONC 08-19 16:31
PROVIDERS: ADMIT Student in an Organized Health Care Education/Training Program; ATTEND Internal Medicine
DX: E11.10 Type 2 diabetes mellitus with ketoacidosis without coma (principal); G93.41 Metabolic encephalopathy; N17.9 Acute kidney failure, unspecified; E87.0 Hyperosmolality and hypernatremia; E87.6 Hypokalemia; E86.0 Dehydration; I95.9 Hypotension, unspecified; E83.42 Hypomagnesemia; E83.39 Other disorders of phosphorus metabolism; I25.10 Atherosclerotic heart disease of native coronary artery without angina pectoris; Z91.199 Patient's noncompliance with other medical treatment and regimen due to unspecified reason; Z95.1 Presence of aortocoronary bypass graft; Z90.49 Acquired absence of other specified parts of digestive tract
CPT/HCPCS: 36415; 36416; 71045; 80048; 80053; 80307; 82010; 82805; 83036; 83605; 83690; 83735; 83880; 84100; 84703; 85025; 87040; 93005; 96361; 96365; 96366; 96368; J1815; J3475; J3480; J3490; J7030; J7050; J7120; J7999; P9047

== ENCOUNTER 2023-08-24 12:25 | Inpatient (IN) | payer SELFPAY ==
[2023-08-24 13:00] LABS: Bacteria/HPF 4+ HPF (None Seen); Bilirubin Negative (Negative); Blood, Urine Negative (Negative); CAUTI Indications for Culture Dysuria,urgency,freq; Clarity Clear (Clear); Glucose, Urine (Dipstick) Greater than 1000 mg/dL (Negative); Ketone, Urine Negative (Negative); Leukocyte 25 Leu/uL (Negative); Nitrite Negative (Negative); Protein, Urine (Dipstick) Negative (Neg-Trace); RBC/HPF 0-3 HPF (0-3); Specific Gravity, Urine 1.019 (1.002-1.036); Squamous Epithelial 0-3 HPF (0-3); Urobilinogen Normal mg/dL (Less than 2); pH, Urine 6.5 (5.0-9.0)
[2023-08-24 13:01] LABS: Urine Culture Reflex Yes Yes
[2023-08-24 13:07] LABS: #Basophils 0.04 10x3/uL (0.0-0.2); %Basophils 0.4 % (0.0-1.0); %Eosinophils 1.7 % (0.0-10.0); %Lymphocytes 23.9 % (21.0-51.0); %Monocytes 13.9 % (0.0-10.0); Hematocrit 31.1 % (36.0-47.0); Hemoglobin 9.8 g/dL (12.0-16.0); Mean Corpuscular HGB CONC 31.5 g/dL (32.0-36.0); Mean Corpuscular Hemoglobin 25.8 pg (27.0-31.0); Mean Corpuscular Volume 81.8 fL (78.0-98.0); Mean Platelet Volume 9.1 fL (7.4-10.4); Platelet Count 313 10x3/uL (130-400); RBC Distribution Width 18.1 % (11.5-14.5)
[2023-08-24 13:12] LABS: BHCG - Serum Negative (NEGATIVE); Pregs Control Background? CLEAR/WHITE (CLR/WHITE); Pregs Control Bar Appear? YES (CONTROL BAR)
[2023-08-24 14:15] LABS: ALT (SGPT) 30 U/L (8-55); AST (SGOT) 38 U/L (5-34); Albumin 3.3 g/dL (3.5-5.0); Alkaline Phosphatase 122 U/L (40-110); Anion Gap 14 mmol/L (10-20); BUN (Urea Nitrogen) 7 mg/dL (7.0-18.7); Bilirubin, Total 0.9 mg/dL (0.2-1.2); Calc. Creatinine Clearance 0 mL/min (70-130); Carbon Dioxide 25 mmol/L (22-29); Chloride 94 mmol/L (98-107); Estimated GFR 81; Glucose 461 mg/dL (70-105); Potassium 4.1 mmol/L (3.5-5.1); Protein, Total 7.3 g/dL (6.0-8.3); Sodium 129 mmol/L (136-145)
[2023-08-24 17:20] LABS: Lipase 24 U/L (8-78); Magnesium 1.7 mg/dL (1.6-2.6)
[2023-08-24 17:28] LABS: Troponin I Less than 0.010 ng/mL (< 0.028)
[2023-08-24 19:39] VITALS: BMI 28.1
[2023-08-25 05:33] LABS: #Basophils Less than 0.03 10x3/uL (0.0-0.2); %Basophils 0.2 % (0.0-1.0); %Eosinophils 1.5 % (0.0-10.0); %Lymphocytes 35.2 % (21.0-51.0); %Monocytes 15.1 % (0.0-10.0); %Neutrophils 47.5 % (42.0-75.0); Hematocrit 27.6 % (36.0-47.0); Hemoglobin 8.6 g/dL (12.0-16.0); Mean Corpuscular HGB CONC 31.2 g/dL (32.0-36.0); Mean Corpuscular Volume 83.4 fL (78.0-98.0); Mean Platelet Volume 9.2 fL (7.4-10.4); Platelet Count 245 10x3/uL (130-400); RBC Distribution Width 17.8 % (11.5-14.5); Red Blood Cell (RBC) Count 3.31 mill/uL (4.20-5.40)
[2023-08-25 05:41] LABS: Anion Gap 15 mmol/L (10-20); BUN (Urea Nitrogen) 6 mg/dL (7.0-18.7); Calc. Creatinine Clearance 109 mL/min (70-130); Calcium 8.4 mg/dL (7.8-10.44); Carbon Dioxide 22 mmol/L (22-29); Chloride 105 mmol/L (98-107); Estimated GFR 97; Glucose 267 mg/dL (70-105); Potassium 4.1 mmol/L (3.5-5.1); Sodium 138 mmol/L (136-145)
[2023-08-26 10:20] VITALS: BP 104/72; TEMP 98.3
== END 2023-08-26 10:16 | disposition home or self-care (01) | DRG 872 ==
LOC: ERS 12:25 → T4-A 17:53
PROVIDERS: ADMIT Family Medicine; ATTEND Hospitalist
DX: A41.59 Other Gram-negative sepsis (principal); N39.0 Urinary tract infection, site not specified; E87.1 Hypo-osmolality and hyponatremia; B95.7 Other staphylococcus as the cause of diseases classified elsewhere; E11.9 Type 2 diabetes mellitus without complications; I25.10 Atherosclerotic heart disease of native coronary artery without angina pectoris; F12.90 Cannabis use, unspecified, uncomplicated; F31.9 Bipolar disorder, unspecified; Z88.8 Allergy status to other drugs, medicaments and biological substances; Z88.5 Allergy status to narcotic agent; Z91.040 Latex allergy status; Z91.048 Other nonmedicinal substance allergy status; Z79.82 Long term (current) use of aspirin; Z79.02 Long term (current) use of antithrombotics/antiplatelets; Z79.4 Long term (current) use of insulin; Z79.84 Long term (current) use of oral hypoglycemic drugs; Z79.899 Other long term (current) drug therapy; Z87.891 Personal history of nicotine dependence
CPT/HCPCS: 36415; 36416; 71045; 80048; 80053; 81001; 82010; 83605; 83690; 83735; 83930; 84484; 84703; 85025; 87040; 87077; 87086; 87149; 87186; 96361; 96365; 96367; 96375; J0692; J0696; J1815; J2543; J3010; J3370; J3490; J7120

== ENCOUNTER 2024-09-23 08:36 | Outpatient (CLI) | payer OTHER | END 2024-09-23 08:37 | disposition home or self-care (01) | LOC: SCSMRI 08:36 | PROVIDERS: ATTEND Nurse Practitioner Family | DX: M51.16 Intervertebral disc disorders with radiculopathy, lumbar region (principal); M51.34 Other intervertebral disc degeneration, thoracic region; M48.04 Spinal stenosis, thoracic region | CPT/HCPCS: 72148 ==

== ENCOUNTER 2025-02-15 10:12 | Emergency (ER) | payer OTHER ==
[2025-02-15 12:20] LABS: #Basophils 0.05 10x3/uL (0.0-0.2); #Eosinophils 0.59 10x3/uL (0.0-0.7); #Monocytes 0.43 10x3/uL (0.11-0.59); #Neutrophils 6.14 10x3/uL (1.40-6.50); %Basophils 0.6 % (0.0-1.0); %Eosinophils 7.0 % (0.0-10.0); %Lymphocytes 13.9 % (21.0-51.0); %Monocytes 5.1 % (0.0-10.0); %Neutrophils 73.0 % (42.0-75.0); Hematocrit 32.0 % (36.0-47.0); Hemoglobin 10.5 g/dL (12.0-16.0); Mean Corpuscular Hemoglobin 25.2 pg (27.0-31.0); Mean Corpuscular Volume 76.9 fL (78.0-98.0); Platelet Count 204 10x3/uL (130-400); Red Blood Cell (RBC) Count 4.16 mill/uL (4.20-5.40); White Blood Cell (WBC) Count 8.41 10x3/uL (4.8-10.8)
[2025-02-15 12:43] LABS: ALT (SGPT) 11 U/L (Less than 34); AST (SGOT) 25 U/L (11-34); Albumin 3.6 g/dL (3.1-4.5); Alkaline Phosphatase 117 U/L (40-110); Anion Gap 15 mmol/L (10-20); BUN (Urea Nitrogen) 25 mg/dL (7.0-18.7); Bilirubin, Total 0.3 mg/dL (0.3-1.2); Calc. Creatinine Clearance 0 mL/min (70-130); Calcium 9.7 mg/dL (7.8-10.44); Carbon Dioxide 28 mmol/L (22-29); Chloride 97 mmol/L (98-107); Globulin 3.9 g/dL (2.4-3.5); Glucose 196 mg/dL (70-105); Potassium 4.5 mmol/L (3.5-5.1); Sodium 135 mmol/L (136-145)
== END 2025-02-15 12:06 | disposition home or self-care (01) ==
LOC: ERS 10:12
DX: L02.416 Cutaneous abscess of left lower limb (principal); E11.9 Type 2 diabetes mellitus without complications; Z87.891 Personal history of nicotine dependence
CPT/HCPCS: 80053; 83605; 85025; 87040; 99283